=== PATIENT | female | born 1985 | race Caucasian/White ===

== ENCOUNTER 2017-02-06 10:41 | Emergency (ER) | payer OTHER ==
[~2017-02-06] VITALS: Ht 144.8 cm; Wt 52.3 kg
[~2017-02-06 10:41] MED LIST: ACET-784 PO
[2017-02-06 12:35] VITALS: BP 100/65
== END 2017-02-06 12:37 | disposition home or self-care (01) ==
LOC: EMS 10:43
DX: Z01.419 Encounter for gynecological examination (general) (routine) without abnormal findings (principal); Z85.9 Personal history of malignant neoplasm, unspecified
CPT/HCPCS: 99283